=== PATIENT | male | born 1950 | race Caucasian/White ===

== ENCOUNTER 2023-12-14 17:10 | Emergency (ER) | payer MEDICARE, SELFPAY ==
[2023-12-14 17:14] VITALS: BP 209/106
[2023-12-14 17:46] LABS: % Basophils 0.8 % (0-2); % Eosinophils 1.9 % (0-6); % Immature Granulocytes 0.5 % (0-0.5); % Lymphocytes 32.5 % (20.5-51.1); % Monocytes 10.9 % (1.7-9.3); % Neutrophils 53.4 % (42.2-75.2); Absolute Basophils 0.1 10^3/uL (0-0.2); Absolute Eosinophils 0.2 10^3/uL (0-0.7); Absolute Lymphocytes 2.6 10^3/uL (1.2-3.4); Absolute Monocytes 0.9 10^3/uL (0.1-0.6); Absolute Neutrophils 4.2 10^3/uL (1.4-6.5); Hematocrit 49.9 % (39.0-52.0); Hemoglobin 16.7 g/dL (13.0-18.0); Mean Corp Hgb Conc. 33.5 g/dL (33.0-37.0); Mean Corpuscular Hgb 30.5 pg (27.0-31.0); Mean Corpuscular Volume 91.1 fL (80.0-94.0); Mean Platelet Volume 10.7 fL (7.4-10.4); Nucleated Red Blood Cells % 0 % (-); Platelet Count 175 10^3/uL (130-400); Red Blood Cell Count 5.48 10^6/uL (4.70-6.10); Red Cell Dist. Width 13.1 % (11.5-14.5); White Blood Cell Count 7.9 10^3/uL (4.8-10.8)
[2023-12-14 17:59] LABS: ALT (SGPT) 29 U/L (0-50); AST (SGOT) 33 U/L (17-59); Albumin 4.8 g/dl (3.5-5.0); Alkaline Phosphatase 54 U/L (38-126); Blood Urea Nitrogen 30 mg/dl (9-20); Calcium 9.8 mg/dl (8.4-10.2); Carbon Dioxide 26 mmol/L (22-30); Chloride 103 mmol/L (98-107); Glucose 142 mg/dl (70-99); Potassium 5.3 mmol/L (3.5-5.1); Sodium 143 mmol/L (135-145); Total Bilirubin 0.5 mg/dl (0.2-1.3); Total Protein 7.8 g/dl (6.3-8.2); eGFR 58.01
[2023-12-14 18:10] LABS: Troponin I < 0.012 ng/ml
[2023-12-14 20:37] VITALS: BP 189/93
[2023-12-14 20:39] VITALS: BMI 29.8
--- NOTE | 2023-12-14 20:45 | ED.GENMED ---
History of Present Illness
General
Chief Complaint: Abnormal Lab Value
Source: patient
Exam Limitations: none
Time Seen by Provider: 12/14/23 20:45
Nursing documentation reviewed up to this point in time: agreed with
History of Present Illness
History of Present Illness:
Patient presents to ED secondary to an abnormal outpatient blood work, which revealed potassium of 6. Patient states that blood work was done as a routine blood work, that was performed by his new primary care physician. Patient states that his
potassium level is always between 5.2 and 5.5. Patient denies dizziness. Denies chest pain or shortness of breath. Denies nausea vomiting. Denies recent change in medications or diet. Patient states that he has been very careful in terms of
what he eats.
Past History
Past History
ED Past Medical History: HTN and Other (Blood clots on warfarin)
ED Past Surgical History: Negative Cardiac
Social History
Tobacco: Non-smoker
Alcohol: None
Drug: None
Personal:
Living: with family
Employment: Retired
Family History
Family History: Other (Noncontributory)
Review of Systems
Review of Systems
Allergies reviewed?: Yes
All Other Systems: ROS reviewed and negative except as documented in HPI and ROS
Constitutional: Reports no symptoms
EENT: Reports no symptoms
Respiratory: Reports no symptoms
Cardiac: Reports no symptoms
ABD/GI: Reports no symptoms
: Reports no symptoms
Musculoskeletal: Reports no symptoms
Skin: Reports no symptoms
Neurological: Reports no symptoms
Phy Exam
Physical Exam
Physical Exam:
Physical Exam
General: no apparent distress, not acutely ill. afebrile
Head: nc/at. eomi
Neck: supple. no meningeal signs.
Heart: s1/s2 regular rate and rhythm, no murmur. equal radial pulses.
Lungs: no acute respiratory distress. clear bilaterally
Abdomen: normal bowel sounds. not tender.
Neuro: alert and oriented. no focal neurological deficits
Skin: no rash
Psychiatric: well kept. interactive and cooperative
Extremities: no edema. no calf tenderness.
Course
Orders/Labs/Results
Orders:
Orders
12/14/23 17:19
ECG [Electrocardiogram (*1)] Urgent
Reason for Study: CAD
EKG- Treatment ONCE
12/14/23 17:29
CMP [Comprehensive Metabolic Panel] Urgent
Complete Blood Count/With Diff Urgent
Troponin I Urgent
Abnormal Lab Results
12/14/23
17:29
MPV 10.7 H fL
(7.4-10.4)
Absolute Monos (auto) 0.9 H 10^3/uL
(0.1-0.6)
Monocytes % 10.9 H %
(1.7-9.3)
Potassium 5.3 H mmol/L
(3.5-5.1)
BUN 30 H mg/dl
(9-20)
Glucose 142 H mg/dl
(70-99)
12/14/23 17:29
12/14/23 17:29
Vital Signs
Initial and Last Documented VS:
Initial Vital Signs
Temp Pulse Resp BP Pulse Ox
97.9 F 63 18 209/106 98
12/14/23 17:14 12/14/23 17:14 12/14/23 17:14 12/14/23 17:14 12/14/23 17:14
Last Documented Vital Signs
Temp Pulse Resp BP Pulse Ox
97.9 F 61 20 172/78 99
12/14/23 17:14 12/14/23 21:15 12/14/23 21:15 12/14/23 21:00 12/14/23 21:15
MDM/Problems Addressed
MDM/Problems Addressed:
Potassium 5.3 noted, along with normal EKG. Otherwise, patient is asymptomatic and hemodynamically stable, without any distress. Patient states that he already has an appointment with his sand cutter on Saturday, with whom he will discuss his
blood work results.
*EKG
Interpreted by ED Provider?: Yes
EKG Intrepretation Date: 12/14/23
Heart Rate: 56
Rate: bradycardiac
Rhythm: sinus
[place]: normal axis
Interval: normal interval
*Critical Care Note
Total Time (30-74mins, 75-104mins- exclusive of procedures): Not Applicable
ED Attending Note
-
Portions of this chart may have been created with voice recognition software.� Occasional wrong word or��sound alike� substitutions may have occurred due to the inherent limitations of voice recognition software.
Discharge Plan
Departure
Patient Disposition: Home (Routine Discharge)
Date of Disposition: 12/14/23
Time of Disposition: 21:18
Patient with high blood pressure during this ER visit?: Yes
Discharge Problem:
Hyperkalemia, HTN (hypertension)
Instructions: Hyperkalemia (DC), BLOOD PRESSURE
Prescriptions:
No Action
atenolol 25 MG tablet
25 mg PO DAILY
ascorbic acid (vitamin C) [Vitamin C] 500 MG tablet
1,000 mg PO DAILY
allopurinol 100 MG tablet
100 mg PO BID Qty: 1 0RF
Aspirin
81 mg PO DAILY
spironolactone 25 MG tablet
25 mg PO DAILY
Multivitamin
1 tab PO DAILY
famotidine 20 MG tablet
20 mg PO PRN PRN (Reason: heartburn)
hydrocodone-acetaminophen [[place]] 1 EACH tablet
1 - 2 ea PO Q4H PRN (Reason: pain) Qty: 30 0RF
Referrals:
Angel Bangura Jr., DO [Family Provider] -
Verjaquelinee,Melchiore A., MD [Active] -
Activity Restrictions/Additional Instructions:
As discussed, please follow-up with your sand cutter on Saturday as scheduled, for further evaluation and treatment.
Interventions
Interventions:
*Risk Screen - Suicide Last Done: 12/14/23 17:14
*General Assessment Last Done: 12/14/23 17:14
*Neglect/Abuse Screening Last Done: 12/14/23 17:14
ED- Fall Risk Assessment Last Done: 12/14/23 20:38
*ED COVID-19 Vaccine History Last Done: 12/14/23 20:37
*Nursing Disposition Last Done: 12/14/23 21:23
Discharge Date and Time
Discharge Date/Time: 12/14/23 21:31
Print Language: CZECH
[2023-12-14 21:00] VITALS: BP 172/78
== END 2023-12-14 21:31 | disposition home or self-care (01) ==
LOC: EMR 17:10
PROVIDERS: EMERGENCY PHYSICIAN Emergency Medicine; FAMILY PHYSICIAN Family Medicine
DX: E87.5 Hyperkalemia (principal); I10 Essential (primary) hypertension
CPT/HCPCS: 99284; 80053; 84484; 85025; 93005

== ENCOUNTER → 2024-04-23 10:04 | Outpatient (REF) | payer MEDICARE, SELFPAY | LOC: RCS 10:04 | PROVIDERS: ATTENDING PHYSICIAN Internal Medicine; FAMILY PHYSICIAN Family Medicine | DX: I35.0 Nonrheumatic aortic (valve) stenosis (principal); I10 Essential (primary) hypertension | CPT/HCPCS: 93306 ==

== ENCOUNTER 2024-08-03 22:44 | Inpatient (IN) | payer MEDICARE, SELFPAY ==
[2024-08-03 18:06] VITALS: BP 140/85
[2024-08-03 18:31] LABS: Urine Albumin 2+ (Neg - Trace); Urine Bilirubin 1+ (Negative); Urine Character Clear (Clear); Urine Color Yellow; Urine Glucose Negative (Negative); Urine Ketone Negative (Negative); Urine Leukocyte 1+ (Negative); Urine Nitrite Negative (Negative); Urine Occult Blood 3+ (Negative); Urine Urobilinogen 1+ (Neg - 1+)
[2024-08-03 18:33] LABS: Hematocrit 54.4 % (39.0-52.0); Mean Corp Hgb Conc. 33.1 g/dL (33.0-37.0); Mean Corpuscular Hgb 30.7 pg (27.0-31.0); Mean Corpuscular Volume 92.7 fL (80.0-94.0); Red Blood Cell Count 5.87 10^6/uL (4.70-6.10); Red Cell Dist. Width 13.2 % (11.5-14.5)
[2024-08-03 18:46] LABS: Urine Bacteria Many (Negative); Urine Hyaline Cast >15 /LPF (0-2); Urine Red Blood Cell 0-2 /HPF (0-2); Urine Squamous Cell 0-2 /LPF (Few)
--- NOTE | 2024-08-03 18:46 | ED.GENMED ---
History of Present Illness
General
Chief Complaint: Flank Pain
Source: patient
Exam Limitations: none
Time Seen by Provider: 08/03/24 18:32
History of Present Illness
History of Present Illness:
73yoM with a history of hypertension, CKD, and prior CVA presenting for evaluation of flank pain. Patient started having pain in his right flank about 3 days ago which radiated to the right shoulder. Pain feels similar to when he's had a kidney
stone in the past. He also reports difficulty urinating and feels like he is not emptying his bladder completely. He started to spike a fever overnight with a Tmax of 101.6. He also feels generally weak. He slid out of bed overnight and fell but
denies any injuries from this. Patient was seen by his PCP today and was sent to the ED for concern for an infected kidney stone.
Past History
Past History
ED Past Medical History: HTN and Other (Blood clots on warfarin)
ED Past Surgical History: Negative Cardiac
Social History
Tobacco: Non-smoker
Alcohol: None
Drug: None
Personal:
Living: with family
Employment: Retired
Family History
Family History: Other (Noncontributory)
Phy Exam
General Physical Exam
General Presentation: no apparent distress
General Skin: warm and dry
General Habitus: normal and elderly
General Mental: alert
ENT Exam
ENT Exam: normocephalic
Cardiovascular Exam
Cardiovascular Exam: regular rate/rhythm
Pulmonary Exam
Pulmonary Exam: lungs clear, no respiratory distress, no rales, no crackles, no rhonchi and no wheezing
Gastrointestinal Exam
Gastrointestinal Exam: soft, non distended, no cva tenderness and other (+Tenderness to RUQ. No rebound or guarding.)
Neurological Exam
Neurological Exam: alert
[place] Coma Scale
Eye Opening: Spontaneous
Verbal Response: Oriented
Motor Response: Obeys Commands
GCS Total Score: 15
Skin Exam
Skin Exam: normal color and warm/dry
Psychiatric Exam
Psychiatric Exam: normal mood/affect
Course
Orders/Labs/Results
Orders:
Orders
08/03/24 18:08
CT Abd/pel Without Iv Or Oral Urgent
Comment:
Reason For Exam: right flank pain
08/03/24 18:20
Complete Blood Count/With Diff Urgent
Comprehensive Metabolic Panel Urgent
Urinalysis Reflex To Culture Urgent
Date Specimen was Collected: 08/03/24
Time Specimen was Collected: 18:08
Urine Microscopic Reflex Cult Urgent
Urine Culture Urgent
JHOAN Source: U
Specimen Description:
Date Specimen was Collected: 08/03/24
Time Specimen was Collected: 18:08
08/03/24 18:45
0.9% Sodium Chloride 1000 ml [Nss] 1,000 ml IV BOLUS
08/03/24 19:05
Lactate Level [Lactic Acid] Urgent
08/03/24 19:36
HYDROmorphone [Dilaudid] 0.5 mg IV NOW STA
08/03/24 19:48
CR Chest - 2 Views Urgent
Comment:
Reason For Exam: SOB
08/03/24 21:07
HYDROmorphone [Dilaudid] 1 mg IV NOW STA
Piperacillin/Tazo 4.5 Gram [Zosyn] 4.5 gram in 100 ml IV NOW
08/03/24 21:15
Blood Culture Q30M
JHOAN Source: Blood/Venous
Specimen Description:
Blood Culture Q30M
JHOAN Source: Blood/Venous
Specimen Description:
08/03/24 22:25
Admit/Transfer Patient As Directed
Co-Sign Provider:
Level of Care: Inpatient admission
Assign to:: Telemetry
Physician / Group: Dano
Diagnosis: Acute Calculous Cholecystitis
Reason for Telemetry: Arrhythmia
Date to Stop Telemetry: 08/06/24
Time to Stop Telemetry: 11:00
Reason for Hospitalization: Acute Calculous Cholecystitis
Expected length of stay greater than two midnights?: Yes
ELOS- Estimated Length of Stay in days: 4
I certify the patient meets the requirements for IP care: Yes
PRN Pain Medication Management As Directed
May give lesser potent ordered pain med per pt: Yes
preference::
Protocol:: Medication orders for pain may be administered in a
manner that supports deferring to patient preference
when the pt is:
- Requesting an ordered lesser potent pain medication.
Least to most potent pain medications are defined
as: acetaminophen < NSAID < tramadol < opioids
(morphine, oxycodone, hydromorphone).
- Requesting a lesser dose of the same medication IF
ORDERED.
- Requesting a less intrusive route of administration
if both routes are prescribed by the provider (PO <
IV).
08/03/24 22:26
Code Status As Directed
Resuscitation Status: Full Code
08/03/24 23:00
Flush (0.9% Sodium Chloride) [Flush (Nss)] See Dose Instructions IV PER PROTOCOL
08/06/24 11:00
DC Protocol for Telemetry ONCE
Abnormal Lab Results
08/03/24 08/03/24
18:20 19:05
WBC 17.0 H 10^3/uL
(4.8-10.8)
Hct 54.4 H %
(39.0-52.0)
MPV 10.8 H fL
(7.4-10.4)
Abs Immat Gran (auto) 0.1 H 10^3/uL
(0-0.05)
Absolute Neuts (auto) 14.2 H 10^3/uL
(1.4-6.5)
Absolute Monos (auto) 1.4 H 10^3/uL
(0.1-0.6)
Neutrophils % 83.3 H %
(42.2-75.2)
Lymphocytes % 7.3 L %
(20.5-51.1)
BUN 29 H mg/dl
(9-20)
Creatinine 1.7 H mg/dL
(0.7-1.3)
Glucose 201 H mg/dl
(70-99)
Lactic Acid 2.2 H mmol/L
(0.7-2.0)
Calcium 10.3 H mg/dl
(8.4-10.2)
Total Bilirubin 2.3 H mg/dl
(0.2-1.3)
AST 62 H U/L
(17-59)
Total Protein 8.5 H g/dl
(6.3-8.2)
Ur Occult Blood Reflex 3+ A
(Negative)
Urine Bilirubin 1+ A
(Negative)
Leukocyte Esterase Rfl 1+ A
(Negative)
Urine Bacteria (Reflex) Many A
(Negative)
Urine Albumin (Reflex) 2+ A
(Neg - Trace)
08/03/24 18:20
08/03/24 18:20
Vital Signs
Initial and Last Documented VS:
Initial Vital Signs
Temp Pulse Resp BP Pulse Ox
98.5 F 95 20 140/85 97
08/03/24 18:06 08/03/24 18:06 08/03/24 18:06 08/03/24 18:06 08/03/24 18:06
Last Documented Vital Signs
Temp Pulse Resp BP Pulse Ox
98.5 F 92 24 136/55 97
08/03/24 18:06 08/03/24 21:45 08/03/24 21:45 08/03/24 21:21 08/03/24 21:45
MDM/Problems Addressed
Differential Diagnosis Includes:
73yoM here with R flank pain x 3 days. Radiates to R shoulder. Spiked a fever overnight to 101.6. Afebrile on arrival. Sent to ED by PCP for concern for infected kidney stone. He is non-toxic appearing. There is RUQ tenderness on exam. Differential
diagnosis includes but is not limited to: kidney stone, pyelonephritis, cholecystitis, appendicitis
Initial ED plan: Labs obtained in triage. WBC 17. Remainder of labs pending. Will check lactate and CT abdomen without contrast. IV fluid bolus.
*Pulse Oximetry
Patient hypoxic: no (97%)
*Critical Care Note
Total Time (30-74mins, 75-104mins- exclusive of procedures): Not Applicable
Update Note
Update Note:
CT shows severe acute cholecystitis. Lactate elevated at 2.2. Total bilirubin 2.3. Creatinine 1.7, up from 1.3 in November 2023. Blood cultures and IV Zosyn ordered. Discussed case with general surgery and patient admitted to the hospitalist
service for further management.
ED Attending Note
-
Portions of this chart may have been created with voice recognition software.� Occasional wrong word or��sound alike� substitutions may have occurred due to the inherent limitations of voice recognition software.
Discharge Plan
Departure
Patient Disposition: Admit
Date of Disposition: 08/03/24
Time of Disposition: 21:19
Presentation/result/management discussed w/ accepting MD/DO: Hospitalist
Discharge Problem:
Acute cholecystitis, Sepsis
Interventions
Interventions:
*General Assessment Last Done: 08/03/24 18:06
JT-Funmlo-Logekjvhel Assessment Last Done: 08/03/24 18:45
ED-Male Genitourinary Assessment Last Done: 08/03/24 18:45
[2024-08-03 18:51] LABS: % Basophils 0.4 % (0-2); % Eosinophils 0.1 % (0-6); % Immature Granulocytes 0.5 % (0-0.5); % Lymphocytes 7.3 % (20.5-51.1); % Monocytes 8.4 % (1.7-9.3); % Neutrophils 83.3 % (42.2-75.2); Absolute Basophils 0.1 10^3/uL (0-0.2); Absolute Immature Granulocytes 0.1 10^3/uL (0-0.05); Absolute Lymphocytes 1.2 10^3/uL (1.2-3.4); Absolute Monocytes 1.4 10^3/uL (0.1-0.6); Absolute Neutrophils 14.2 10^3/uL (1.4-6.5); Mean Platelet Volume 10.8 fL (7.4-10.4); Nucleated Red Blood Cells % 0 % (-); Platelet Count 182 10^3/uL (130-400)
[2024-08-03 18:57] LABS: ALT (SGPT) 27 U/L (0-50); AST (SGOT) 62 U/L (17-59); Alkaline Phosphatase 71 U/L (38-126); Blood Urea Nitrogen 29 mg/dl (9-20); Calcium 10.3 mg/dl (8.4-10.2); Carbon Dioxide 22 mmol/L (22-30); Chloride 103 mmol/L (98-107); Glucose 201 mg/dl (70-99); Potassium 4.6 mmol/L (3.5-5.1); Sodium 139 mmol/L (135-145); Total Bilirubin 2.3 mg/dl (0.2-1.3); Total Protein 8.5 g/dl (6.3-8.2); eGFR 42.04
[2024-08-03] MEDS: NSS 1000 IV (19:05)
[2024-08-03 19:28] LABS: Lactic Acid 2.2 mmol/L (0.7-2.0)
[2024-08-03] MEDS: DILAUDID 0.5 MG IV (19:40)
[2024-08-03] MEDS: DILAUDID 1 MG IV (21:16)
[2024-08-03] MEDS: ZOSYN 100 IV (21:17)
[2024-08-03 21:21] VITALS: BP 136/55
--- NOTE | 2024-08-03 21:54 | HPS.HSE ---
Family Physician
-
Family Physician: Angel Bangura Jr.
Chief Complaint
-
Fever / Chills
History of Present Illness
Patient is a 73y M with PMH significant for hypertension, DM-II and prior hemorrhagic CVA who presents to ED complaining of fevers, chills and R flank pain. Patient states that he started with some R lower back discomfort on Saturday. He
attributed this to leaning over a table for a prolonged time for work. He took a few doses of Vicodin with improvement in his symptoms. Early this AM - around 3AM - he woke from sleep with shaking chills, diaphoresis and weakness. He slid out of
bed and onto the floor and had difficulty getting up unassisted. His temp at home was 101.6 at that time. He took Tylenol with improvement in his fever and associated symptoms. Patient also noted increased / new pain in the R flank area and R
lower / anterior ribs. He thought that he may have 'cracked something' during his fall from bed.
He was seen by his PCP today and referred to the ED for further evaluation and treatment.
Imaging done in the ED reveals distended GB with wall thickening and pericholecystic fluid consistent with acute cholecystitis.
Medical History
Past Medical History
Past Medical History: Reports Other
Additional Past Medical History:
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
DVT (during hospitalization for the above / provoked)
Hypertension / Hyperaldosteronism
DM-II (diet-controlled)
CKD III
Gout
Spinal Stenosis / Neurogenic Claudication
Diverticular Disease
Nephrolithiasis
Past Surgical History: Reports Other
Additional Past Surgical History:
IVC Filter Placed (2009)
Sigmoid Resection / Colostomy
Colostomy Reversal
R Retina Surgery
Social History
Tobacco: Non-smoker
Alcohol: Occasional
Drug: None
Personal:
Living: With Family
Family History
Family History: Not pertinent
Allergies / Home Medications
Allergies reflects when Allergies were last updated in [facility].
Home Medications with original date entered in [facility]
Allergy/Medication List:
Allergies
Allergy/AdvReac Type Severity Reaction Status Date / Time
No Known Allergies Allergy Verified 08/03/24 18:05
Home Medications
ascorbic acid (vitamin C) 500 mg tablet (Vitamin C) 1,000 mg PO DAILY Supplement 10/17/18
atenolol 25 mg tablet 25 mg PO DAILY Blood pressure 10/17/18
allopurinol 100 mg tablet 100 mg PO BID ##1 10/28/18
Aspirin 81 mg PO DAILY 10/21/19
Multivitamin 1 tab PO DAILY Supplement 10/21/19
famotidine 20 mg tablet 20 mg PO PRN PRN heartburn 10/21/19
spironolactone 25 mg tablet 25 mg PO DAILY 10/21/19
hydrocodone 5 mg-acetaminophen 325 mg tablet ([place]) 1 - 2 ea (1 - 2 x 5-325 mg) PO Q4H PRN pain #30 tabs 10/26/19
Review of Systems
-
History Source: Patient
A 12 point ROS was completed and negative except as noted: Yes
Constitutional: Reports Fatigue and Chills
EENT: Denies Sore Throat
Respiratory: Denies Cough or Trouble Breathing
Cardiac: Denies Chest Pain or Palpitations
Abdomen/GI: Reports Abdominal Pain, Nausea and Anorexia; Denies Vomiting or Diarrhea
: Reports Flank Pain; Denies Dysuria or Frequency
Musculoskeletal: Denies Joint Pain or Edema
Neurological: Denies Dizzy or Headache
Psych: Denies Depression or Anxiety
Physical Exam
Vital Signs
Vital Signs
Temp Pulse Resp BP Pulse Ox
98.5 F 92 24 136/55 97
08/03/24 18:06 08/03/24 21:45 08/03/24 21:45 08/03/24 21:21 08/03/24 21:45
Physical Exam
General: Other (73y M in no acute distress. Some mild confusion following opioid administration.)
HEENT: Moist mucous membranes and PERRLA
Respiratory: Other (Few bibasilar rales. Otherwise clear.)
Cardiac: S1/S2, Regular Rhythm and Murmur (II/ JOY)
GI: Soft, Non Distended, Normal Bowel Sounds and Other (Pos RUQ tenderness without rebound or guarding.)
Musculoskeletal: No Clubbing, No Cyanosis and No Edema
Neuro: AO x 3
Laboratory Results
-
08/03/24 18:20
08/03/24 18:20
Laboratory Results
Lactic Acid 2.2 mmol/L (0.7-2.0) H 08/03/24 19:05
Total Bilirubin 2.3 mg/dl (0.2-1.3) H 08/03/24 18:20
AST 62 U/L (17-59) H 08/03/24 18:20
ALT 27 U/L (0-50) 08/03/24 18:20
Alkaline Phosphatase 71 U/L (38-126) 08/03/24 18:20
Impression/Plan
-
A/P: Patient is a 73y M with PMH significant for hypertension, DM-II and prior history of hemorrhagic CVA who presents to ED complaining of R flank pain and fevers / chills.
Acute Calculous Cholecystitis
Sepsis secondary to the above
- Admit for further evaluation and treatment.
- Patient presents with fever (101.6 at home), leukocytosis, tachycardia, tachypnea and imaging / exam consistent with cholecystitis.
- NPO, IVFs, IV abx, etc.
- Supportive care, pain control, antiemetics.
- Surgery evaluation for definitive treatment / cholecystectomy.
- Follow for any new / worsening symptoms.
Benign Hypertension
- Stable. Continue home medications with holding parameters.
DM-II
- Stable / diet-controlled at baseline.
- Follow glucose and cover with SSI if needed.
- Update A1C.
CKD III
- Unclear baseline. Monitor SCr over the next 2-3 days to establish / rule out VICTORIANO component.
- IVF support as noted above.
History of Hemorrhagic CVA
Left Sided Weakness secondary to the above
- Stable. No new symptoms / no interim issues since initial event in 2009 - attributed to poorly controlled BP.
DVT Prophylaxis: SCDs
Code Status: Full
[2024-08-03 22:00] VITALS: BP 120/68
[2024-08-03 23:00] VITALS: BP 129/75
[2024-08-04] VITALS (15 sets, daily range): BP systolic 20–146; BP diastolic 55–82; BMI 28.5
[2024-08-04] MEDS: DILAUDID 0.5 MG IV ×4 (01:10→16:42)
[2024-08-04] MEDS: ZOFRAN 4 MG IV (01:12)
[2024-08-04] MEDS: NSS 1000 IV ×2 (01:13→09:44)
[2024-08-04] MEDS: ZOSYN 50 IV ×4 (03:14→21:20)
[2024-08-04 05:47] LABS: Glucose - Point of Care 176 mg/dl (70-99)
[2024-08-04] MEDS: NOVOLOG FLEXPEN-LOW RESISTANCE 1 UNITS SC ×2 (07:25→16:45)
[2024-08-04 07:36] LABS: Hemoglobin 15.9 g/dL (13.0-18.0); Mean Corp Hgb Conc. 33.8 g/dL (33.0-37.0); Mean Corpuscular Hgb 30.9 pg (27.0-31.0); Mean Corpuscular Volume 91.4 fL (80.0-94.0); Mean Platelet Volume 11.2 fL (7.4-10.4); Platelet Count 151 10^3/uL (130-400); Red Blood Cell Count 5.14 10^6/uL (4.70-6.10); Red Cell Dist. Width 13.2 % (11.5-14.5); White Blood Cell Count 16.2 10^3/uL (4.8-10.8)
[2024-08-04] MEDS: PROTONIX IV 40 MG IV (08:39)
[2024-08-04] MEDS: NSS (PRESERVATIVE FREE) 10 ML IV (08:39)
[2024-08-04] MEDS: TENORMIN 25 MG PO (08:40)
[2024-08-04] MEDS: ZETIA 10 MG PO (08:41)
[2024-08-04] MEDS: ASPIR LOW (ENTERIC COATED) 81 MG PO (08:41)
[2024-08-04] MEDS: ZYLOPRIM 100 MG PO ×2 (08:41→19:55)
[2024-08-04 08:43] LABS: ALT (SGPT) 25 U/L (0-50); AST (SGOT) 50 U/L (17-59); Albumin 3.6 g/dl (3.5-5.0); Alkaline Phosphatase 61 U/L (38-126); Blood Urea Nitrogen 26 mg/dl (9-20); Calcium 8.8 mg/dl (8.4-10.2); Carbon Dioxide 21 mmol/L (22-30); Chloride 107 mmol/L (98-107); Direct Bilirubin 0.9 mg/dl (0.0-0.4); Estimated Creatinine Clearance 54 ml/min; Glucose 182 mg/dl (70-99); Potassium 4.5 mmol/L (3.5-5.1); Sodium 137 mmol/L (135-145); Total Bilirubin 1.7 mg/dl (0.2-1.3); Total Protein 6.5 g/dl (6.3-8.2); eGFR 48.85
--- NOTE | 2024-08-04 08:45 | W.PN.HOSP.TC ---
Today's Communication/Plan
-
Antibiotics. Cholecystectomy.
Assessment / Plan
Assessment / Plan
Physical exam:
General: Acutely ill
HEENT: Normocephalic, Atraumatic and Moist Mucous Membranes
Respiratory: Clear to Auscultation; Negative Wheezes, Rales or Rhonchi
Cardiac: Regular Rhythm and S1/S2
GI: Soft, RUQ tender and Nondistended
Musculoskeletal: No Clubbing, No Cyanosis and No Edema
Neuro: Awake, Alert and Oriented, no neuro-deficits
Psych: Calm
A/P:
Acute Calculous Cholecystitis
Sepsis secondary to the above
- Admit for further evaluation and treatment.
- Patient presents with fever (101.6 at home), leukocytosis, tachycardia, tachypnea and imaging / exam consistent with cholecystitis.
- NPO, IVFs, IV abx, etc.
- Supportive care, pain control, antiemetics.
- Surgery evaluation for definitive treatment / cholecystectomy.
- Follow for any new / worsening symptoms.
Benign Hypertension
- Stable. Continue home medications with holding parameters.
DM-II
- Stable / diet-controlled at baseline.
- Follow glucose and cover with SSI if needed.
- Update A1C.
CKD III
- Unclear baseline. Monitor SCr over the next 2-3 days to establish / rule out VICTORIANO component.
- IVF support as noted above.
History of Hemorrhagic CVA
Left Sided Weakness secondary to the above
- Stable. No new symptoms / no interim issues since initial event in 2009 - attributed to poorly controlled BP.
DVT Prophylaxis: SCDs
Code Status: Full
Anticipated Discharge: > 48 hours
Subjective/Interval History
-
Date of Service: August 04, 2024
Patient with right upper quadrant pain. No nausea or vomiting. No chest pain or shortness of breath today. Afebrile
Objective Data
-
Labs:
Laboratory Results
08/04/24 08/04/24
07:00 08:16
WBC 16.2 H
Hgb 15.9
Hct 47.0
Plt Count 151
Sodium Cancelled 137
Potassium Cancelled 4.5
Chloride Cancelled 107
Carbon Dioxide Cancelled 21 L
BUN Cancelled 26 H
Creatinine Cancelled 1.5 H
Glucose Cancelled 182 H
Calcium Cancelled 8.8 D
Total Bilirubin Cancelled 1.7 H
AST Cancelled 50
ALT Cancelled 25
Alkaline Phosphatase Cancelled 61
Vital Signs:
Vital Signs
Temp Pulse Resp BP Pulse Ox
99.6 F 101 16 120/73 89
08/04/24 07:20 08/04/24 07:20 08/04/24 07:20 08/04/24 07:20 08/04/24 07:20
I&O
08/03/24 08/04/24 08/05/24
06:59 06:59 06:59
Intake Total 550 / 550
Output Total 300 / 300
Balance 250 / 250
[2024-08-04 09:18] LABS: Lipase 73 U/L (23-300)
--- NOTE | 2024-08-04 09:21 | CON.GS ---
Consultation
-
Date/Time Consultation Requested: See time and lanny eof order placed
Date/Time Consultation Performed: See time and date of note filed
Medical History
-
Chief Complaint: RUQ and flank pain
History of Present Illness:
Patient is a 73 yo M with a PMH of obesity, HTN, hyperaldosteronism, NIDDM (diet-controlled), stage III CKD, spinal stenosis, h/o CVA in 2009 with LLE weakness, DVT s/p IVC filter in 2009 s/p removal, and perforated diverticulitis s/p Pena's
procedure s/p colostomy [place] [address] Xavier. Mr. Mendosa presents with approximately 4 to 5 days of RUQ abdominal pain. He states that his symptoms began on Saturday as a lower back pain. He has issues with chronic back pain (on
narcotics). He took 3 doses of Hydrocodone/Acetaminophen over the weekend with some mild improvement in symptoms. On Saturday morning his symptoms became quite severe. He initially attributed his symptoms to fractured ribs on his RIGHT, however,
his symptoms were so severe that he presented to the hospital. Associated fevers up to 101. No nausea or vomiting. No fluctuations from a GI function. Denies any prior attacks of RUQ abdominal pain or discomfort. Denies any prior knowledge of
cholelithiasis. No family history.
Past Medical History
Past Medical History: CVA, HTN, NIDDM, Renal Failure and Other (Hyperaldosteronism, spinal stenosis, DVT)
Past Surgical History: Bowel Resection (Krista's procedure, colostomy reversal)
Social History
Tobacco: Non-Smoker
Alcohol: None
Drug: None
Family History
Family History: Reviewed & Noncontributory
Allergies / Home Medications
Allergy/AdvReac Type Severity Reaction Status Date / Time
No Known Allergies Allergy Verified 08/03/24 18:05
�Medication �Instructions �Recorded �Confirmed �Type
atenolol 25 mg tablet 25 mg PO DAILY Blood pressure 10/17/18 08/03/24 History
allopurinol 100 mg tablet 100 mg PO BID ##1 10/28/18 08/03/24 Rx
Aspirin 81 mg PO DAILY Blood Clot 10/21/19 08/03/24 History
Prevention/Tx
Multivitamin 1 tab PO DAILY Supplement 10/21/19 08/03/24 History
spironolactone 25 mg tablet 12.5 mg PO Q48H Fluid 10/21/19 08/03/24 History
Retention/Swelling
hydrocodone 5 mg-acetaminophen 325 1 - 2 ea PO Q4H PRN pain #30 tabs 10/26/19 08/03/24 Rx
mg tablet ([place])
ezetimibe 10 mg tablet (Zetia) 10 mg PO DAILY High Cholesterol 08/03/24 08/03/24 History
Review of Systems
-
A 10 point review of systems was completed, and was negative except as per HPI.
Physical Exam
Vital Signs
Temp Pulse Resp BP Pulse Ox
99.6 F 101 16 120/73 89
08/04/24 07:20 08/04/24 07:20 08/04/24 07:20 08/04/24 07:20 08/04/24 07:20
08/03/24 08/04/24 08/05/24
06:59 06:59 06:59
Actual Weight 106.095 kg
Body Mass Index (BMI) 28.5
Lab Results
08/04/24 07:00
08/04/24 08:16
WBC 16.2 10^3/uL (4.8-10.8) H 08/04/24 07:00
Hgb 15.9 g/dL (13.0-18.0) 08/04/24 07:00
Hct 47.0 % (39.0-52.0) 08/04/24 07:00
Plt Count 151 10^3/uL (130-400) 08/04/24 07:00
Abs Immat Gran (auto) 0.1 10^3/uL (0-0.05) H 08/03/24 18:20
Neutrophils % 83.3 % (42.2-75.2) H 08/03/24 18:20
Physical Exam
General: Well Developed, Well Nourished and No Apparent Distress
HEENT: Normocephalic and Scleral Icterus
Cardiac: Other (Tachycardic)
GI: Soft, Non Distended, Tender (RUQ, positive Johnson's sign), Incisions (Well healed), Obese and Other (No diffuse peritonitis)
Genito-urinary: Inguinal Hernia (soft reducible bilaterally (L>R))
Skin: Warm and Dry
Neuro: Nonfocal/Grossly Intact
Data Reviewed
-
CT Scan: Image Personally Visualized and interpreted and Report Reviewed by me
Labs: Labs Reviewed by me
Old Records: Reviewed
Assessment / Plan
-
Patient is a 73 yo M p/w acute calculus cholecystitis
The natural history and pathophysiology of biliary and stone disease was discussed. Anatomy was reviewed. Workup thus far including labs and imaging were reviewed. Options for management including medical and procedural management with
antibiotics and IR percutaneous cholecystostomy tube versus surgical management with cholecystectomy were considered and discussed. The pros and cons of both approaches was discussed.
Plan for a laparoscopic cholecystectomy with possible cholangiogram. The procedure itself, as well as the risks, benefits, and alternatives was discussed. Specifically, we discussed the risk of bleeding, infection, injury to surrounding structures
(bowel, bile ducts), CBD injury, need for open procedure. We discussed that given his delay in presentation he is at increased risk for significant adhesions, operative complications including injury to surrounding structures, potential for
subtotal cholecystectomy, and potential need for an operative drain. Typical postprocedural recovery was discussed. All questions answered. Consent signed.
-- Laparoscopic cholecystectomy with possible cholangiogram
-- NPO, IVF
-- Antibiotics: Zosyn
--- NOTE | 2024-08-04 09:37 | W.SUR.PREOP ---
Pre-Operative Surgical Note
-
I have examined this patient prior to the performance of the scheduled procedure.
The patient's condition is unchanged from the time of the current History and
Physical and the patient is able to undergo the scheduled procedure.
[2024-08-04 10:27] LABS: Glycohemoglobin (HgbA1c) 8.5 % (4.0-5.6)
--- NOTE | 2024-08-04 14:21 | W.IMMPOSTOP ---
Surgical Immed Post Op Note
-
Primary Surgeon: Alanis
Assisting Surgeon: MIKE Malhotra
Pre-op Diagnosis: Acute cholecystitis
Post-op Diagnosis: Acute on chronic cholecystitis
Procedure Performed: Laparoscopic cholecystectomy with IOC
Anesthesia Type: General
Specimen / Cultures:
1. Gallbladder
Estimated Blood Loss: 199 cc
Complications: None
Operative Findings:
1. Severe acute inflammation, wall thickening, large stone, decompression of clear hydropic bile
2. Critical view of safety
3. IOC without filling defects
4. Artery taken with clips, duct with clips and 0 PDS Endoloop
5. 19 Fr Akil drain into operative field
Plan:
-- Abx for 4 days post-op (Zosyn and Augmentin on DC as needed)
[2024-08-04 14:35] LABS: Glucose - Point of Care 184 mg/dl (70-99)
--- NOTE | 2024-08-04 15:42 | CM ---
Patient in sx, therefore called his to obtain information for assessment. Patient's stated that patient lives with her in a one story home with 2 steps to enter. She described patient as independent with all of his ADLs, personal care,
dressing and bathing. 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 He drives and can get to his appointments and does his own shopping. He has no DME. Has has not had VN services. He did go to a SNF years ago after a complicated sx and
was at [facility] in [place].
Patient has a prescription plan and uses, [facility] in [place] on [address] for all of his medications.
Patient's PCP is, Angel Echols.
Plan: Case management will continue to follow and assist with discharge planning. Patient's stated that patient should be able to return home with her and does not feel that he will have any needs.
--- NOTE | 2024-08-04 15:46 | PTCARENOTE ---
Returned from OR with 4 lap sites CDI. PB drain to Right. Call ramirez within reach. No complaints at this time.
[2024-08-04] MEDS: NOVOLOG FLEXPEN-LOW RESISTANCE SC ×2 (15:52→16:50)
[2024-08-04 16:42] LABS: Glucose - Point of Care 183 mg/dl (70-99)
[2024-08-04] MEDS: TYLENOL 650 MG PO (19:53)
[2024-08-04] MEDS: ROXICODONE 5 MG PO (19:54)
[2024-08-04 21:27] LABS: Glucose - Point of Care 314 mg/dl (70-99)
[2024-08-04] MEDS: TYLENOL PO (23:23)
[2024-08-05] MEDS: TYLENOL 650 MG PO ×4 (01:00→16:43)
[2024-08-05 03:38] VITALS: BP 90/53
[2024-08-05] MEDS: NSS 1000 IV (04:18)
[2024-08-05] MEDS: ZOSYN 50 IV ×4 (04:20→23:55)
--- NOTE | 2024-08-05 04:20 | DOWNTIME ---
Addendum entered by Beverly Francisco RN 08/05/24 14:22:
Correction: Downtime was 08/05/2024 from 0100 to 08/05/2024 at 0415
Original Note:
There was a [employer]ceivable Manager Downtime on 08/04/2024 from 0100 to 08/05/2024 at 0415. Downtime documentation of patient's care, including medication administrations, has been reconciled in the electronic record per guidelines. Refer to the
patient's paper chart under the miscellaneous tab to see printed paper medication records and downtime forms.
[2024-08-05 06:02] VITALS: BMI 28.7
[2024-08-05 07:24] LABS: Glucose - Point of Care 191 mg/dl (70-99)
[2024-08-05 07:36] VITALS: BP 127/69
[2024-08-05 08:14] LABS: % Basophils 0.1 % (0-2); % Immature Granulocytes 0.6 % (0-0.5); % Lymphocytes 6.7 % (20.5-51.1); % Monocytes 7.4 % (1.7-9.3); % Neutrophils 85.2 % (42.2-75.2); Absolute Immature Granulocytes 0.1 10^3/uL (0-0.05); Absolute Lymphocytes 0.9 10^3/uL (1.2-3.4); Absolute Neutrophils 11.3 10^3/uL (1.4-6.5); Hematocrit 43.1 % (39.0-52.0); Hemoglobin 14.6 g/dL (13.0-18.0); Mean Corp Hgb Conc. 33.9 g/dL (33.0-37.0); Mean Corpuscular Hgb 30.6 pg (27.0-31.0); Mean Corpuscular Volume 90.4 fL (80.0-94.0); Mean Platelet Volume 11.6 fL (7.4-10.4); Nucleated Red Blood Cells % 0 % (-); Platelet Count 139 10^3/uL (130-400); Red Blood Cell Count 4.77 10^6/uL (4.70-6.10); Red Cell Dist. Width 13.3 % (11.5-14.5); White Blood Cell Count 13.2 10^3/uL (4.8-10.8)
--- NOTE | 2024-08-05 08:58 | W.PN.GS2 ---
Today's Communication / Plan
-
Advance diet
Assessment / Plan
-
This is a 73-year-old male postoperative day 1 from a laparoscopic cholecystectomy for acute cholecystitis. Doing well, expected postoperative course.
Will advance to a low-fat diet.
Continue antibiotics day 1 of 4
Drain to bulb suction.
Anticipate patient will be ready for discharge tomorrow, will likely pull drain prior to discharge.
Time Spent
Total Time Spent with Patient (in minutes): 20
Subjective Data
-
Date of Service: August 05, 2024
Interval Events:
No acute events overnight. Slept well. Pain Controlled. Denies Nausea/Vomiting, +bowel function. Tolerating diet.
Objective Data
-
Intake and Output
08/04/24 08/05/24 08/06/24
06:59 06:59 06:59
Intake Total 550 / 550 1150 / 1150
Output Total 300 / 300 1200 / 1200 300 / 300
Balance 250 / 250 -50 / -50 -300 / -300
Intake:
Oral fluids 0 / 0
IV fluids (Total) 500 / 500 1050 / 1050
Normosol 50 / 50
IV piggybacks 50 / 50 100 / 100
Output:
Drain Output (Total) 150 / 150
Right Abdomen Morales-Barakat 150 / 150
Urine, Voided 300 / 300 1050 / 1050 300 / 300
Vital Signs
Temp Pulse Resp BP Pulse Ox
97.8 F 57 18 127/69 96
08/05/24 07:36 08/05/24 07:36 08/05/24 07:36 08/05/24 07:36 08/05/24 07:36
Lab Results
08/05/24 06:58
Calcium Cancelled 08/05/24 06:58
Total Bilirubin Cancelled 08/05/24 06:58
Direct Bilirubin 0.9 mg/dl (0.0-0.4) H 08/04/24 08:16
AST Cancelled 08/05/24 06:58
ALT Cancelled 08/05/24 06:58
Alkaline Phosphatase Cancelled 08/05/24 06:58
Total Protein Cancelled 08/05/24 06:58
Albumin Cancelled 08/05/24 06:58
Physical Exam
-
GENERAL/NEURO: Awake, Alert, no distress
CHEST: Unlabored breathing on RA
ABDOMEN: Soft, Non-Tender, Non-Distended, incisions clean dry and intact. PB serosanguineous.
Patient has a morales catheter: No
Patient has a central line: No
[2024-08-05] MEDS: ZETIA 10 MG PO (09:00)
[2024-08-05] MEDS: ASPIR LOW (ENTERIC COATED) 81 MG PO (09:01)
[2024-08-05] MEDS: TENORMIN 25 MG PO (09:01)
[2024-08-05] MEDS: ROXICODONE 5 MG PO ×2 (09:01→14:56)
[2024-08-05] MEDS: ZYLOPRIM 100 MG PO ×2 (09:02→21:28)
[2024-08-05] MEDS: NSS (PRESERVATIVE FREE) 10 ML IV (09:02)
[2024-08-05] MEDS: PROTONIX IV 40 MG IV (09:03)
[2024-08-05] MEDS: NOVOLOG FLEXPEN-LOW RESISTANCE 1 UNITS SC ×2 (09:06→16:44)
--- NOTE | 2024-08-05 09:15 | W.PN.HOSP.TC ---
Today's Communication/Plan
-
Postop care
Assessment / Plan
Assessment / Plan
Physical exam:
General: Acutely ill
HEENT: Normocephalic, Atraumatic and Moist Mucous Membranes
Respiratory: Clear to Auscultation; Negative Wheezes, Rales or Rhonchi
Cardiac: Regular Rhythm and S1/S2
GI: Soft, RUQ tender and Nondistended
Musculoskeletal: No Clubbing, No Cyanosis and No Edema
Neuro: Awake, Alert and Oriented, no neuro-deficits
Psych: Calm
A/P:
Sepsis due to acute Calculous Cholecystitis:
Status post laparoscopic cholecystectomy on 08/04
Continue IV antibiotics
Plan to advance diet today
WBC 17--> 13.2 today
Appreciated surgery consult and follow-up
Hiccups:
PPI
Baclofen
Prochlorperazine as needed
Hypertension:
Continue home medications with holding parameters.
Holding spironolactone since potassium in the normal high side
DM-II
- Stable / diet-controlled at baseline.
- Follow glucose and cover with SSI if needed.
- Update A1C 8.5
CKD III
Creatinine 1.6 today
Creatinine 1.7 upon admission
- Unclear baseline. Monitor SCr over the next 2-3 days to establish / rule out VICTORIANO component.
- IVF support as noted above.
History of Hemorrhagic CVA
Left Sided Weakness secondary to the above
- Stable. No new symptoms / no interim issues since initial event in 2009 - attributed to poorly controlled BP.
DVT Prophylaxis: SCDs
Code Status: Full
Anticipated Discharge: Within 24 hours
Subjective/Interval History
-
Date of Service: August 05, 2024
Patient with expected postop pain. Complains of hiccups. Afebrile
Objective Data
-
Labs:
Laboratory Results
08/05/24 08/05/24
06:58 08:55
WBC 13.2 H
Hgb 14.6
Hct 43.1
Plt Count 139
Sodium Cancelled Pending
Potassium Cancelled Pending
Chloride Cancelled Pending
Carbon Dioxide Cancelled Pending
BUN Cancelled Pending
Creatinine Cancelled Pending
Glucose Cancelled Pending
Calcium Cancelled Pending
Total Bilirubin Cancelled Pending
AST Cancelled Pending
ALT Cancelled Pending
Alkaline Phosphatase Cancelled Pending
Vital Signs:
Vital Signs
Temp Pulse Resp BP Pulse Ox
97.8 F 60 18 127/69 96
08/05/24 07:36 08/05/24 09:01 08/05/24 07:36 08/05/24 09:01 08/05/24 07:36
I&O
08/04/24 08/05/24 08/06/24
06:59 06:59 06:59
Intake Total 550 / 550 1150 / 1150
Output Total 300 / 300 1200 / 1200 300 / 300
Balance 250 / 250 -50 / -50 -300 / -300
[2024-08-05 09:28] LABS: ALT (SGPT) 56 U/L (0-50); AST (SGOT) 75 U/L (17-59); Albumin 3.2 g/dl (3.5-5.0); Alkaline Phosphatase 60 U/L (38-126); Blood Urea Nitrogen 33 mg/dl (9-20); Carbon Dioxide 23 mmol/L (22-30); Chloride 107 mmol/L (98-107); Estimated Creatinine Clearance 50 ml/min; Glucose 186 mg/dl (70-99); Potassium 4.6 mmol/L (3.5-5.1); Sodium 137 mmol/L (135-145); Total Bilirubin 1.1 mg/dl (0.2-1.3); eGFR 45.21
[2024-08-05] MEDS: NSS IV (11:00)
[2024-08-05 11:42] VITALS: BP 114/63
[2024-08-05 12:49] LABS: Glucose - Point of Care 218 mg/dl (70-99)
[2024-08-05] MEDS: NOVOLOG FLEXPEN-LOW RESISTANCE 2 UNITS SC (12:51)
[2024-08-05] MEDS: LIORESAL 5 MG PO (14:26)
[2024-08-05] MEDS: COMPAZINE 10 MG PO (14:27)
[2024-08-05 15:09] VITALS: BP 126/70
[2024-08-05 16:29] LABS: Glucose - Point of Care 159 mg/dl (70-99)
--- NOTE | 2024-08-05 16:34 | PTCARENOTE ---
Received patient this am AAOx3. Pt tolerated clears. IVF capped. Pt then tolerated low fat diet. Pt complained of pain at incision an drain site. Medicated with Roxicodone PRN with relief. OOB to chair an tolerated well. Made patient comfortable.
Cont to assess patient status.
[2024-08-05] MEDS: HEPARIN 5000 UNITS SC (16:43)
[2024-08-05 19:35] VITALS: BP 133/83
[2024-08-05] MEDS: TYLENOL PO (20:00)
[2024-08-05 21:23] LABS: Glucose - Point of Care 236 mg/dl (70-99)
[2024-08-05 23:39] VITALS: BP 120/75
[2024-08-06] MEDS: TYLENOL PO ×3 (00:38→13:21)
[2024-08-06 03:24] VITALS: BP 151/78
[2024-08-06 05:26] VITALS: BMI 28.4
[2024-08-06] MEDS: ZOSYN 50 IV (05:27)
[2024-08-06 07:24] LABS: Glucose - Point of Care 166 mg/dl (70-99)
[2024-08-06 07:35] VITALS: BP 136/74
--- NOTE | 2024-08-06 07:48 | W.PN.HOSP.TC ---
Today's Communication/Plan
-
Discharge planning today
Assessment / Plan
Assessment / Plan
Physical exam:
General: No acute distress
HEENT: Normocephalic, Atraumatic and Moist Mucous Membranes
Respiratory: Clear to Auscultation; Negative Wheezes, Rales or Rhonchi
Cardiac: Regular Rhythm and S1/S2
GI: Soft, mild postop tender and Nondistended
Musculoskeletal: No Clubbing, No Cyanosis and No Edema
Neuro: Awake, Alert and Oriented, no neuro-deficits
Psych: Calm
A/P:
Sepsis due to acute Calculous Cholecystitis:
Status post laparoscopic cholecystectomy on 08/04
Switch antibiotics to oral
Tolerating diet okay
WBC 17--> 10.3 today
Appreciated surgery consult and follow-up
Cleared by surgery for discharge
Hiccups:
PPI
Baclofen
Prochlorperazine as needed
Hypertension:
Continue home medications with holding parameters.
Holding spironolactone since potassium in the normal high side
DM-II
- Stable / diet-controlled at baseline.
- Follow glucose and cover with SSI if needed.
- Update A1C 8.5
CKD III
Creatinine 1.6 today
Creatinine 1.7 upon admission
- Unclear baseline. Monitor SCr over the next 2-3 days to establish / rule out VICTORIANO component.
- IVF support as noted above.
History of Hemorrhagic CVA
Left Sided Weakness secondary to the above
- Stable. No new symptoms / no interim issues since initial event in 2009 - attributed to poorly controlled BP.
DVT Prophylaxis: SCDs
Code Status: Full
Anticipated Discharge: Today
Subjective/Interval History
-
Date of Service: August 06, 2024
No new complaints
Objective Data
-
Labs:
Laboratory Results
08/06/24
07:45
WBC Pending
Hgb Pending
Hct Pending
Plt Count Pending
Sodium Pending
Potassium Pending
Chloride Pending
Carbon Dioxide Pending
BUN Pending
Creatinine Pending
Glucose Pending
Calcium Pending
Vital Signs:
Vital Signs
Temp Pulse Resp BP Pulse Ox
97.6 F 58 16 151/78 96
08/06/24 03:24 08/06/24 03:24 08/06/24 03:24 08/06/24 03:24 08/06/24 03:24
I&O
08/05/24 08/06/24 08/07/24
06:59 06:59 06:59
Intake Total 1150 / 1150 1830 / 1830
Output Total 1200 / 1200 1760 / 1760
Balance -50 / -50 70 / 70
[2024-08-06 08:48] LABS: % Basophils 0.1 % (0-2); % Eosinophils 1.6 % (0-6); % Immature Granulocytes 0.4 % (0-0.5); % Lymphocytes 14.1 % (20.5-51.1); % Monocytes 8.7 % (1.7-9.3); % Neutrophils 75.1 % (42.2-75.2); Absolute Eosinophils 0.2 10^3/uL (0-0.7); Absolute Lymphocytes 1.5 10^3/uL (1.2-3.4); Absolute Monocytes 0.9 10^3/uL (0.1-0.6); Absolute Neutrophils 7.8 10^3/uL (1.4-6.5); Hematocrit 42.6 % (39.0-52.0); Hemoglobin 14.4 g/dL (13.0-18.0); Mean Corp Hgb Conc. 33.8 g/dL (33.0-37.0); Mean Corpuscular Hgb 30.9 pg (27.0-31.0); Mean Corpuscular Volume 91.4 fL (80.0-94.0); Mean Platelet Volume 11.6 fL (7.4-10.4); Nucleated Red Blood Cells % 0 % (-); Platelet Count 182 10^3/uL (130-400); Red Blood Cell Count 4.66 10^6/uL (4.70-6.10); Red Cell Dist. Width 13.2 % (11.5-14.5); White Blood Cell Count 10.3 10^3/uL (4.8-10.8)
[2024-08-06] MEDS: TENORMIN 25 MG PO (08:50)
[2024-08-06] MEDS: ASPIR LOW (ENTERIC COATED) 81 MG PO (08:51)
[2024-08-06] MEDS: TYLENOL 650 MG PO (08:51)
[2024-08-06] MEDS: PROTONIX IV 40 MG IV (08:52)
[2024-08-06] MEDS: ZETIA 10 MG PO (08:52)
[2024-08-06] MEDS: ZYLOPRIM 100 MG PO (08:52)
[2024-08-06] MEDS: NSS (PRESERVATIVE FREE) 10 ML IV (08:52)
[2024-08-06] MEDS: HEPARIN 5000 UNITS SC ×2 (08:53)
[2024-08-06] MEDS: NOVOLOG FLEXPEN-LOW RESISTANCE 1 UNITS SC (08:54)
[2024-08-06 08:57] LABS: Blood Urea Nitrogen 36 mg/dl (9-20); Calcium 8.5 mg/dl (8.4-10.2); Carbon Dioxide 21 mmol/L (22-30); Chloride 110 mmol/L (98-107); Estimated Creatinine Clearance 54 ml/min; Glucose 172 mg/dl (70-99); Potassium 4.5 mmol/L (3.5-5.1); Sodium 138 mmol/L (135-145); eGFR 48.85
--- NOTE | 2024-08-06 09:31 | W.PN.GS2 ---
Addendum entered and electronically signed by Gary Causey MD 08/06/24 10:06:
Patient seen and examined with surgical RECOVERY COLLECTOR. Agree with documented progress note.
Overall patient feeling satisfactory postop.
Incisional pain controlled.
Tolerating dietary advancement with some belching but also passing flatus.
No nausea
AFVSS
NAD, AAO x 3
ABD: Softly distended, mild tenderness palpation only at incision sites. Incisions with glue dressings.
PB with nonbilious light serosanguineous fluid --> removed
A/P: POD #2 status post lap filiberto for ACC
PB removed
4-day course of postoperative antibiotics which can be finished with Augmentin
Stable for discharge from surgical standpoint
Outpatient surgical follow-up with Dr. Thapa
Original Note:
Today's Communication / Plan
-
dispo planning
Assessment / Plan
-
This is a 73-year-old male POD #2 from a laparoscopic cholecystectomy for acute cholecystitis.
AFVSS
Doing well, expected postoperative course.
Plan:
Continue low-fat diet.
Continue antibiotics day 2 of 4, would transition to PO Augmentin upon d/c
Drain removed at bedside
OK for d/c from surgical standpoint
Subjective Data
-
Date of Service: August 06, 2024
Patient seen and examined at bedside with Dr. Causey. Denies n/v. tolerating diet. Some belching but passing flatus. Some soreness at inicisions.
Objective Data
-
Intake and Output
08/05/24 08/06/24 08/07/24
06:59 06:59 06:59
Intake Total 1150 / 1150 1830 / 1830 180 / 180
Output Total 1200 / 1200 1760 / 1760 300 / 300
Balance -50 / -50 70 / 70 -120 / -120
Intake:
Oral fluids 1230 / 1230 180 / 180
IV fluids (Total) 1050 / 1050 500 / 500
Normosol 50 / 50
IV piggybacks 100 / 100 100 / 100
Output:
Drain Output (Total) 150 / 150 110 / 110
Right Abdomen Morales-Barakat 150 / 150 110 / 110
Urine, Voided 1050 / 1050 1650 / 1650 300 / 300
Vital Signs
Temp Pulse Resp BP Pulse Ox
97.8 F 64 18 136/74 97
08/06/24 07:35 08/06/24 08:50 08/06/24 07:35 08/06/24 08:50 08/06/24 07:35
Lab Results
08/06/24 07:45
08/06/24 07:45
Calcium 8.5 mg/dl (8.4-10.2) 08/06/24 07:45
Total Bilirubin 1.1 mg/dl (0.2-1.3) 08/05/24 08:55
Direct Bilirubin 0.9 mg/dl (0.0-0.4) H 08/04/24 08:16
AST 75 U/L (17-59) H 08/05/24 08:55
ALT 56 U/L (0-50) H 08/05/24 08:55
Alkaline Phosphatase 60 U/L (38-126) 08/05/24 08:55
Total Protein 6.0 g/dl (6.3-8.2) L 08/05/24 08:55
Albumin 3.2 g/dl (3.5-5.0) L 08/05/24 08:55
Physical Exam
-
GENERAL/NEURO: Awake, Alert, no distress
CHEST: Unlabored breathing on RA
ABDOMEN: Soft, Non-Tender, Non-Distended, incisions clean dry and intact. PB serous.
Patient has a morales catheter: No
Patient has a central line: No
--- NOTE | 2024-08-06 09:51 | W.DCSUMMARY ---
Discharge Summary
Discharge Data
Date of Admission: 08/03/24
Date of Discharge: 08/06/24
Total time spent discharging patient (in min): 32
-
Pending Results: No
Hospital Course
Patient is 73 years old male with history of hypertension, obesity, diabetes mellitus, CKD, spinal stenosis, CVA, came into the hospital with sepsis due to cholecystitis. Patient was placed on antibiotic and IVF. Surgery consulted. Patient
underwent laparoscopic cholecystectomy with IOC on 08/04. His WBC trended down appropriately. He remained afebrile. He did well postop. He tolerated diet and ambulated well without any problems. Surgery cleared him for discharge. His
spironolactone has been resumed upon discharge but will require close follow-up with electrolytes and renal function as outpatient. He will be discharged in stable condition today.
Discharge duration: 32 minutes
Discharge Plan
-
Patient Disposition: Home (Routine Discharge)
Discharge Diagnosis/Procedures: Acute cholecystitis. Laparoscopic cholecystectomy with cholangiogram
Condition: Good
Diet: Regular and Low Fat
Additional Diets: If issues with bloating or diarrhea follow a low-fat diet
Activity: No strenuous activity
Additional Activity: No heavy lifting (>20 lbs) for 2 to 3 weeks.
Driving Restrictions: No driving if too sore or taking narcotics
Bathing Restrictions: OK to Shower
Wound Care: Keep incisions clean and dry. Glue will flake off in 2 to 3 weeks. Stitches will dissolve. Use ice to the abdomen to reduce any bruising or swelling. Cover the site where your drain was with a clean gauze dressing and change daily, ok
to remove for showers. Ok to leave off dressing if no drainage noted.
Activity Restrictions/Additional Instructions:
Call for fevers (>100.5), nausea or vomiting, worsening abdominal pain, yellowing of the eyes or skin
Referrals:
Angel Bangura Jr., DO [Family Provider, Internal Medicine] - in less than 1 week
Juan Thapa MD [Active, Surgical] - in two to four weeks
Prescriptions:
New
amoxicillin-pot clavulanate 875-125 mg Tablet
1 tab PO Q12 2 Days Qty: 4 0RF
oxycodone 5 mg tablet
5 mg PO Q4HPRN PRN (Reason: breakthrough/severe pain) Qty: 10 0RF
Continued
atenolol 25 MG tablet
25 mg PO DAILY
allopurinol 100 MG tablet
100 mg PO BID Qty: 1 0RF
Aspirin
81 mg PO DAILY
spironolactone 25 MG tablet
12.5 mg PO Q48H
Multivitamin
1 tab PO DAILY
ezetimibe [Zetia] 10 mg Tablet
10 mg PO DAILY
Discontinued
hydrocodone-acetaminophen [[place]] 1 EACH tablet
1 - 2 ea PO Q4H PRN (Reason: pain) Qty: 30 0RF
Discharge Orders:
Discharge Patient (As Directed); Ordered 08/06/24
Ordered By: Guanaco Mosqueda
Discharge Date and Time
Discharge Date/Time: 08/06/24 14:08
Print Language: SURINAMESE
[2024-08-06] MEDS: AUGMENTIN 875 MG/125 MG 1 TABLET PO (10:36)
[2024-08-06 11:49] VITALS: BP 139/75
[2024-08-06] MEDS: NOVOLOG FLEXPEN-LOW RESISTANCE SC (13:21)
--- NOTE | 2024-08-06 13:34 | CM ---
Met with patient who is medically stable for discharge. He stated that his will pick him up and transport him home. Reviewed IMM, he signed and it is now on chart.
Plan: Case management will continue to follow and assist with discharge planning. Home no needs.
== END 2024-08-06 14:08 | disposition home or self-care (01) | DRG 854 ==
LOC: 4 EAST ACU 22:44
PROVIDERS: Physician Assistant; ADMITTING PHYSICIAN Hospitalist; ATTENDING PHYSICIAN Hospitalist; EMERGENCY PHYSICIAN Emergency Medicine; FAMILY PHYSICIAN Family Medicine; OTHER PHYSICIAN Surgery
PROC: 0FT44ZZ Resection of Gallbladder, Percutaneous Endoscopic Approach (ICD-10-PCS; 2024-08-05)
DX: A41.9 Sepsis, unspecified organism (principal); I69.254 Hemiplegia and hemiparesis following other nontraumatic intracranial hemorrhage affecting left non-dominant side; K80.12 Calculus of gallbladder with acute and chronic cholecystitis without obstruction; N18.30 Chronic kidney disease, stage 3 unspecified; I12.9 Hypertensive chronic kidney disease with stage 1 through stage 4 chronic kidney disease, or unspecified chronic kidney disease; E11.22 Type 2 diabetes mellitus with diabetic chronic kidney disease; E66.9 Obesity, unspecified; Z68.28 Body mass index [BMI] 28.0-28.9, adult
CPT/HCPCS: 88304; 71046; 74176; 74300; 76000; 80048; 80053; 81003; 81015; 82248; 82962; 83036; 83605; 83690; 85025; 85027; 87040; 87086; 96365; 96375; 96376; 99285; A4300; C1729